=== PATIENT | female | born 1960 | race Caucasian/White ===

== ENCOUNTER → 2017-04-12 | Outpatient (CLI) | payer BC, OTHER ==
[~2017-04-12] MED LIST: CALCIUM OYSTER500 MG PO; MAGNESIUM100 MG PO; NORCO 5-325 TA1 EACH; ROBAXIN 750 MG750 M1; VITAMINC500 PO
== END ==
LOC: NUC 07:45
DX: M81.0 Age-related osteoporosis without current pathological fracture (principal); M48.56XA Collapsed vertebra, not elsewhere classified, lumbar region, initial encounter for fracture; M85.88 Other specified disorders of bone density and structure, other site; E28.8 Other ovarian dysfunction; Z78.0 Asymptomatic menopausal state